=== PATIENT | female | born 1960 | race Caucasian/White ===

== ENCOUNTER → 2016-07-17 | Outpatient (CLI) | payer BC ==
[~2016-07-17] MED LIST: HYDR-5688 PO; LEVO25TA5 PO; LIRA18IN SC; LPT10 PO; MAGN250T3 PO; MBC75 PO; METF-384 PO; MILN50TA PO; MULT-506 PO
[2016-07-17 15:50] LABS: BASO % 0.7 %; BASO ABS # 0.08 K/uL (0-0.2); COMPLETE YES; EOS % 3.2 %; IG% 0.2 %; LYMPH % 20.2 %; LYMPH ABS # 2.19 K/uL (1.2-3.4); MEAN CELL VOLUME 89.6 fL (80-100); MEAN CORPUSCULAR HGB CONC 33.4 g/dl (32-36); MEAN PLATELET VOLUME 10.3 fL (7.4-10.4); MONO % 6.4 %; NEUT % 69.3 %; PLATELET COUNT 383 K/uL (130-400); RED BLOOD COUNT 4.24 M/uL (4.2-5.4); WHITE BLOOD COUNT 10.82 K/uL (4.8-10.8)
[2016-07-17 16:10] LABS: BLOOD UREA NITROGEN 12 mg/dl (7-18); BUN/CREATININE RATIO 13.3 (10-20); CALCIUM 9.3 mg/dl (8.5-10.1); CARBON DIOXIDE 30 mmol/L (21-32); CHLORIDE 107 mmol/L (98-107); CREATININE 0.87 mg/dl (0.60-1.20); GLUCOSE 141 mg/dl (70-99); POTASSIUM 4.3 mmol/L (3.5-5.1); SODIUM 142 mmol/L (136-145)
== END | disposition home or self-care (01) ==
LOC: C.CPL 14:53
PROVIDERS: ATTEND Orthopaedic Surgery
DX: S83.241A Other tear of medial meniscus, current injury, right knee, initial encounter (principal); X58.XXXA Exposure to other specified factors, initial encounter; Z01.812 Encounter for preprocedural laboratory examination; Z01.810 Encounter for preprocedural cardiovascular examination

== ENCOUNTER → 2016-07-17 | Outpatient (CLI) | payer BC ==
--- NOTE | 2016-07-17 13:32 | DIAGNOSTIC IMAGING REPORT ---
MRI right knee RIGHT LOWER EXT JOINT WITHOUT CLINICAL HISTORY: RT KNEE PAIN Right pain TECHNIQUE: Multi axial MRI acquisition COMPARISON STUDY: FINDINGS: Signal characteristics the osseous structures appear unremarkable. There is no significant bone marrow replacing process. There is a very small joint effusion. There are findings of mild chondromalacia patella. There is a 7 mm surface area of articular surface loss of the mid patella. There is no evidence for femoral or patellar reactive bone marrow edema. The patellar retinaculum appear intact. Signal characteristics of all remaining osseous structures are unremarkable. Cruciate ligaments are intact. Mild increase in signal is identified at the posterior horns of both the medial as well as lateral meniscus. This is consistent with a component of meniscal deterioration. Well-defined acute meniscal tear is not appreciated. Mild degenerative changes of the articular services the medial and lateral joint compartments. Several degenerative subchondral cysts posterior aspect of the central and posterior tibial plateaus. IMPRESSION: 1. 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 2. Mild degenerative thinning of the articular surfaces of all structures of the medial and lateral compartments. 3. Mild degenerative matrix change posterior horns of the medial and lateral menisci. No evidence for meniscal tear. 4. Small joint effusion. Electronically signed by: Roberto Scherer M.D. 07/17/2016 1:31 PM Dictated Date/Time: 07/17/2016 1:28 PM
== END | disposition home or self-care (01) ==
LOC: C.MRIBC 12:16
PROVIDERS: ATTEND Orthopaedic Surgery
DX: M25.561 Pain in right knee (principal); M22.41 Chondromalacia patellae, right knee

== ENCOUNTER → 2016-07-25 | Day surgery (SDC) | payer BC ==
[2016-07-23 08:15] VITALS: Ht 170.2 cm; Wt 88.6 kg
[~2016-07-25] VITALS: Ht 170.2 cm; Wt 88.6 kg
[~2016-07-25] MED LIST changes: +ATROPINE SULFATE 0.1 MG/ML 5ML SYR IV PRN; +CEFAZOLIN 2000 MG/60 ML D5W IV SCH; +DEXAMETHASONE SOD INJ 4 MG/ML VIAL ONE; +EpHEDrine SULFATE INJ 50 MG/ML AMP IV PRN; +EpINEphrine INJ 1MG/ML AMP 1 MG/ML AMP ONE; +FENTANYL CITRATE INJ 50 MCG/1 ML 2 ML VIAL ONE; +HYDROCODONE/ACETAMOPHEN 5/325MG TAB ONE; +HYDROCODONE/ACETAMOPHEN 5/325MG TAB PO PRN; +KETOROLAC TROMETHAMINE 30 MG/ML VIAL ONE; +LACTATED RINGER'S 1000ML 1,000 ML IV SCH; +LIDOCAINE HCL 2% 2 ML VIAL (20MG/ML) ONE; +MIDAZOLAM HCL 1 MG/ML 2ML VIAL ONE; +ONDANSETRON INJ 2 MG/ML 2 ML VIAL IV PRN; +ONDANSETRON INJ 2 MG/ML 2 ML VIAL ONE; +PROPOFOL IV EMULSION 10 MG/ML 20 ML VIAL IV ONE; +ROPIVACAINE 0.5% 5 MG/ML 30 ML VIAL ONE; +SODIUM CHLORIDE 0.9% 1000ML 1,000 ML IV SCH
--- NOTE | 2016-07-25 10:55 | History & Physical Bridge - SC ---
H&P Re-Evaluation Bridge Note: I have examined the patient, reviewed the History & Physical and in the interval since the performance of the History & Physical I have noted the following changes of clinical significance: No changes noted
--- NOTE | 2016-07-25 11:44 | Discharge Instructions-SurgCtr ---
Discharge Instructions Date of Service Jul 25, 2016. Visit Reason for Visit: Right Knee Acute Medial Meniscal Tear Discharge Discharge Diagnosis / Problem: SAME ABOVE Discharge Goals Goal(s): Decrease discomfort, Improve function Medications Stopped Medications Name(s): Meloxicam-last dose 07/18/16, metformin-last dose 07/23/16 Restart Stopped Medication(s): MAY RESTART 06/25/2016 Activity Recommendations Activity Limitations: as noted below Lifting Limitations: gradually increase as tolerated Exercise/Sports Limitations: gradually increase as tolerated Anesthesia . Post Anesthesia Instructions: If you have had General Anesthesia or IV Sedation: * Do not drive today. * Resume driving when surgeon permits. * Do not make important decisions or sign legal documents today. * Call surgeon for: 1. Temperature elevations greater than 101 degrees F. 2. Uncontrollable pain. 3. Excessive bleeding. 4. Persistent nausea and vomiting. 5. Medication intolerance (nausea, vomiting or rash). * For nausea and vomiting use only clear liquids such as: tea, soda, bouillon until nausea subsides, then gradually increase diet as tolerated. * If you have any concerns or questions, call your surgeon's office. If physician is unavailable and it is an emergency, call 911 or go to the nearest emergency room. . Instructions / Follow-Up Instructions / Follow-Up MEDICATIONS: * Resume previous medications unless instructed otherwise by your surgeon. * Always take pain medication on a full stomach or with food to avoid upset stomach. * Do not drink alcohol or drive while taking narcotics. * Ibuprofen or Tylenol may be taken if narcotic not needed. SPECIAL CARE INSTRUCTIONS: __ None _X_ Keep extremity elevated and iced x 48 hours; apply ice 20-30 minutes 8-10 times/day. May remove at night. _X_ Crutches _X_ May discard when able __ Brace/Post-op shoe __ 24 hrs/day __ Remove at night _X_ Dressing __ Maintain until seen in office, may shower with plastic over site _X_ Remove dressings in 24-48 hours and then may shower _X_ Cover incisions with band-aids after showering __ Do not remove steri-strips Call physician if chills or temperature rises above 102 degrees or pain unrelieved by prescribed pain medications. Office [phone] Diet Recommendations Home Diet: no limitations Fluid Restriction: None Procedures Procedures Performed: Right Knee Arthroscopy, Partial Medial Meniscectomy Pending Studies Studies pending at discharge: no Work Instructions Return To Work: after follow-up Medical Emergencies . Who to Call and When: Medical Emergencies: If at any time you feel your situation is an emergency, please call 911 immediately. . Non-Emergent Contact Non-Emergency issues call your: Primary Care Provider Call Non-Emergent contact if: you have a fever, temperature is above 101.5 . . "Provider Documentation" section prepared by Dewayne Landaverde.
[2016-07-25] MEDS: FENTANYL CITRATE INJ 50 MCG/1 ML 2 ML VIAL IV PRN ×4 (11:57→12:12)
[2016-07-25 12:36] VITALS: TEMP 36.4
--- NOTE | 2016-07-25 12:49 | Anesthesia Progress Nt - [facility] ---
Anesthesia Post Op Note Date & Time Jul 25, 2016 at 12:48 Vital Signs Pain Intensity: 5 Vital Signs Past 12 Hours Date Time Temp Pulse Resp B/P Pulse Ox O2 Delivery O2 Flow Rate FiO2 07/25/16 12:36 36.4 87 16 131/87 97 Room Air 07/25/16 12:26 93 16 97 07/25/16 12:26 93 16 07/25/16 12:25 139/88 07/25/16 12:24 36.9 87 12 139/88 96 Room Air 07/25/16 12:21 90 9 97 07/25/16 12:21 89 9 07/25/16 12:20 142/89 07/25/16 12:16 94 11 98 07/25/16 12:16 93 11 07/25/16 12:15 146/89 07/25/16 12:11 78 15 07/25/16 12:11 77 15 100 07/25/16 12:10 140/93 07/25/16 12:06 76 14 07/25/16 12:06 74 14 100 07/25/16 12:05 136/87 07/25/16 12:01 80 12 100 07/25/16 12:01 81 12 07/25/16 12:00 144/88 07/25/16 11:56 85 12 07/25/16 11:56 84 12 100 07/25/16 11:55 141/89 07/25/16 11:51 85 13 100 07/25/16 11:51 84 13 07/25/16 11:50 133/85 07/25/16 11:46 88 12 07/25/16 11:46 88 12 100 07/25/16 11:45 139/77 07/25/16 11:41 88 125/87 100 07/25/16 11:41 36.4 87 12 125/87 100 Diffusion Mask 6 07/25/16 11:41 88 07/25/16 09:30 36.4 84 20 150/99 99 Room Air Notes Mental Status: alert / awake / arousable, participated in evaluation Pt Amnestic to Procedure: Yes Nausea / Vomiting: adequately controlled Pain: adequately controlled Airway Patency, RR, SpO2: stable & adequate BP & HR: stable & adequate Hydration State: stable & adequate Anesthetic Complications: no major complications apparent
[2016-07-25 13:01] VITALS: BP 133/84; PULSE 81; O2SAT 98
--- NOTE | 2016-07-25 13:20 | OPERATIVE REPORT ---
DATE OF OPERATION: 07/25/2016 PREOPERATIVE DIAGNOSIS: Possible medial meniscal tear of the right knee. POSTOPERATIVE DIAGNOSIS: Medial meniscal tear and chondromalacia within the patellofemoral joint, small lateral meniscal tear as well. PROCEDURE: Right knee diagnostic arthroscopy with chondroplasty and partial medial and lateral meniscectomy. SURGEON: Dr. Titi Houston. NETWORK SECURITY ADMINISTRATOR: Joce Landaverde PA-C, whose assistance was necessary for positioning the arm and helping with instrumentation. ANESTHESIA: General. COMPLICATIONS: None. CONDITION: Stable to PACU. INDICATIONS: Florence is a pleasant 56-year-old female who presented to my office with a 3-year history of right knee pain. She had an MRI about 3 years ago which was negative. She continued to have pain. I did a repeat MRI which showed some degeneration of the meniscus but no complete tears. However, after failing years of conservative treatment, she elected to undergo diagnostic arthroscopy. OPERATION AND FINDINGS: On 07/25/2016 she arrived at [facility] for the above procedure. She was seen in the preoperative holding area and the operative extremity was identified and signed. She was given a preoperative antibiotic and taken back to the operating room, laid on the table in supine position and put under general anesthesia. The right knee was then prepped and draped in sterile fashion. Time-out was done and the patient and operative extremity was properly identified. A scope was introduced in the lateral parapatellar portal. Diagnostic arthroscopy showed some grade 2 chondral changes on the patella, grade 4 chondral changes in the center of the trochlea. The scope was brought into the medial compartment. There was no arthritis or chondral damage medially. There was a medial meniscal tear at the posterior aspect of the meniscus. A medial parapatellar portal was made under direct visualization. A shaver was used to debride the meniscal tear back to stable margins. The scope was brought into the trochlea. ACL and PCL were intact. The leg was brought in the figure 4 position and the lateral compartment was inspected. There was some fraying and partial tearing of the posterior aspect of the lateral meniscus. A shaver was used to debride the lateral meniscus back to stable margins. There was no cartilage damage laterally. The scope was then put into the medial parapatellar portal. Repeat diagnostic arthroscopy showed no additional pathology. The knee was then irrigated and arthroscopic instruments were removed. Portal sites were closed with 3-0 nylon. The knee was then injected with 30 mL of Neuropen with epinephrine and Toradol. She was then placed in a soft compressive dressing, extubated, transferred to a litter and taken to the postanesthesia care unit in stable condition. She tolerated the procedure well. I attest to the content of the Intraoperative Record and any orders documented therein. Any exceptio ns are noted below.
--- NOTE | 2016-07-25 13:28 | [facility] Post Operative Brief Note ---
Immediate Operative Summary Operative Date Jul 25, 2016. Pre-Operative Diagnosis Right Knee Acute Medial Meniscus Tear Post-Operative Diagnosis Same Procedure(s) Performed Right Knee Arthroscopy, Partial Medial Meniscectomy Surgeon Dr Houston Heel Seat Pounder Surgeon(s) Joce Landaverde PA-C Estimated Blood Loss Trace Findings as above Specimens None Complication(s) None Disposition Recovery Room / PACU
== END | disposition home or self-care (01) ==
LOC: X.SURG 08:46
PROVIDERS: ATTEND Orthopaedic Surgery
DX: M23.231 Derangement of other medial meniscus due to old tear or injury, right knee (principal); I34.8 Other nonrheumatic mitral valve disorders; Z98.890 Other specified postprocedural states